=== PATIENT | male | born 1935 | race Caucasian/White ===

== ENCOUNTER 2023-11-25 15:35 | Inpatient (IN) | payer OTHER ==
[~2023-11-25] VITALS: Ht 172.7 cm; Wt 88.5 kg
[2023-11-25 15:38] VITALS: BP_SYST 132; PULSE 104; RESP 32; O2SAT 100
[2023-11-25] MEDS ORDERED: IPRA3AMP9 INH (16:27)
[2023-11-25] MEDS ORDERED: NEU300 PEG (16:27)
[2023-11-25] MEDS ORDERED: COLL100 PEG (16:27)
[2023-11-25] MEDS ORDERED: VALP250S3 PEG (16:27)
[2023-11-25] MEDS ORDERED: SENN8.6T19 PEG (16:27)
[2023-11-25] MEDS ORDERED: INSU100V9 SQ (16:27)
[2023-11-25] MEDS ORDERED: HYDR-2923 PEG (16:27)
[2023-11-25] MEDS ORDERED: POTA8TAB66 PEG (16:27)
[2023-11-25] MEDS ORDERED: LEVE1000 PO (16:27)
[2023-11-25] MEDS ORDERED: LORA2TAB95 PO (16:27)
[2023-11-25] MEDS ORDERED: FURO10SO PEG (16:27)
[2023-11-25] MEDS ORDERED: CHLO473M5 PO (16:27)
[2023-11-25] MEDS ORDERED: TYLL650 PEG (16:27)
[2023-11-25] MEDS ORDERED: HYT1 PEG (16:27)
[2023-11-25] MEDS ORDERED: PIPE3.379 IV (16:27)
[2023-11-25] MEDS ORDERED: MULT-1193 PEG (16:27)
[2023-11-25] MEDS ORDERED: [UNRECOGNIZED DRUG - CODE] PEG (16:27)
[2023-11-25] MEDS ORDERED: CLON0.5T4 PEG (16:27)
[2023-11-25] MEDS ORDERED: LOVI40 SQ (16:27)
[2023-11-25] MEDS ORDERED: METO25TA6 PEG (16:27)
[2023-11-25] MEDS ORDERED: GLUC1VIA14 (16:27)
[2023-11-25] MEDS ORDERED: FAMO40SU5 PEG (16:27)
[2023-11-25] MEDS ORDERED: POLY15DR43 RIGHT EYE (16:27)
[2023-11-25] MEDS ORDERED: ASCO500T20 PEG (16:27)
[2023-11-25] MEDS ORDERED: ANT30 PO (16:27)
[2023-11-25] MEDS ORDERED: FLEETMO RC (16:27)
[2023-11-25] MEDS ORDERED: SSNOVOLOG SUBCUT (16:27)
[2023-11-25] MEDS ORDERED: ASPI-1393 PEG (16:27)
[2023-11-25] MEDS ORDERED: POLY17PO4 PEG (16:27)
[2023-11-25 16:35] LABS: HEMOGLOBIN 7.3 g/dL (14.0-18.0); MEAN CORPUSCULAR HEMOGLOBIN 31 pg (27-31); MEAN CORPUSCULAR HGB CONC 34 % (32-36); MEAN CORPUSCULAR VOLUME 91 fL (79.0-98.0); PLATELET COUNT (AUTO) 191 K/uL (130-430); RED BLOOD CELL COUNT(AUTO) 2.35 MIL/uL (4.2-6.2); RED CELL DISTRIBUTION WIDTH 14.8 % (9.0-15.0); WHITE BLOOD COUNT (AUTO) 11.5 K/uL (4.8-10.8)
[2023-11-25 16:56] LABS: HEMATOCRIT 21.3 % (36-54)
[2023-11-25 17:02] LABS: ALANINE AMINOTRANSFERASE 62 U/L (12-78); ALBUMIN 1.6 g/dL (3.4-4.8); AMYLASE 82 U/L (0-100); ANION GAP 4 (5-15); ASPARTATE AMINOTRANSFERASE 66 U/L (10-37); BILIRUBIN,DIRECT 0.2 mg/dL (0.0-0.3); CALCIUM 8.9 mg/dL (8.4-11.0); CARBON DIOXIDE 37 mmol/L (23-29); CHLORIDE 101 mmol/L (98-107); CREATININE 1.69 mg/dL (0.55-1.30); GLUCOSE 125 mg/dL (74-106); LIPASE 83 U/L (16-77); POTASSIUM 3.9 mmol/L (3.5-5.1); SODIUM SERUM 142 mmol/L (136-145); TOTAL BILIRUBIN 0.4 mg/dL (0.0-1.0); TOTAL PROTEIN, SERUM 6.7 g/dL (6.4-8.3); UREA NITROGEN, BLOOD 89 mg/dL (8-21)
[2023-11-25 17:04] LABS: INR 1.2 (0.80-1.20); PROTHROMBIN TIME 12.1 SECS (9.5-12.5)
[2023-11-25 17:24] LABS: BAND % (MANUAL) 8 % (0-6); BASOPHILS % (MANUAL) 0 % (0-2); EOSINOPHILS % (MANUAL) 0 % (0-7); LYMPHOCYTES % (MANUAL) 17 % (20-46); MONOCYTES % (MANUAL) 7 % (0-11); PLATELET ESTIMATE ADEQUATE (ADEQUATE); POLYCHROMASIA 1+
[2023-11-25] MEDS ORDERED: NOREPINEPHRINE 4 MG/4 ML VIAL IV ONE ×3 (17:40→19:27)
[2023-11-25] MEDS ORDERED: PHENYLEPHRINE HCL 10 MG/ML VIAL (NEOSYNEPHRINE) ONE ×2 (18:17→18:19)
[2023-11-25] MEDS: PHENYLEPHRINE HCL 50 MG in NS 245 ML IV ONE (18:28)
[2023-11-25] MEDS: NOREPINEPHRINE BITARTRATE 4 MG in NS 246 ML IV ONE (18:30)
[2023-11-25] MEDS: NACL 0.9% 1,000 ML IV ONE (18:30)
[2023-11-25] MEDS: D5/0.45 NS 1,000 ML IV SCH (18:30)
[2023-11-25 19:23] VITALS: BP_SYST 158; PULSE 130
[2023-11-25] MEDS ORDERED: PIPERACILLIN/TAZOBACTAM 3.375 GM/VIAL (ZOSYN) IV ONE (19:31)
[2023-11-25] MEDS ORDERED: VANCOMYCIN HCL 1000 MG/VIAL IV ONE (19:34)
[2023-11-25] MEDS: PIPERACILLIN/TAZO 3.375 GM in NS 50 ML IV ONE (19:46)
[2023-11-25] MEDS: PANTOPRAZOLE SODIUM 40 MG/VIAL (PROTONIX) IVP ONE (19:49)
[2023-11-25] MEDS: VANCOMYCIN HCL 1,250 MG in NS 250 ML IV ONE (19:49)
[2023-11-25] MEDS: NOREPINEPHRINE BITARTRATE 4 MG in NS 246 ML IV SCH (19:59)
[2023-11-25] MEDS ORDERED: VASOPRESSIN 20 UNITS in NS 99 ML IV SCH (20:00)
[2023-11-25 21:10] VITALS: PULSE 112
[2023-11-25 23:23] VITALS: PULSE 120
[2023-11-26] VITALS (42 sets, daily range): BP systolic 89–193; PULSE 65–112; RESP 16–31; TEMP 97–99.9; O2SAT 92–100
[2023-11-26 05:00] LABS: BASOPHILS # (AUTO) 0.1 K/uL (0.0-0.2); BASOPHILS % (AUTO) 0.3 % (0.0-2.0); EOSINOPHILS % (AUTO) 0.1 % (0.0-4.0); LYMPHOCYTES # (AUTO) 1.7 K/uL (1.0-5.5); LYMPHOCYTES % (AUTO) 8.3 % (20.5-51.5); MEAN CORPUSCULAR HEMOGLOBIN 29 pg (27-31); MEAN CORPUSCULAR HGB CONC 32 % (32-36); MEAN CORPUSCULAR VOLUME 90 fL (79.0-98.0); MONOCYTES # (AUTO) 1.5 K/uL (0.0-1.0); MONOCYTES % (AUTO) 7.5 % (1.7-9.3); NEUTROPHILS # (AUTO) 17.1 K/uL (1.8-7.7); NEUTROPHILS % (AUTO) 83.8 % (40.0-70.0); PLATELET COUNT (AUTO) 236 K/uL (130-430); RED BLOOD CELL COUNT(AUTO) 2.39 MIL/uL (4.2-6.2); RED CELL DISTRIBUTION WIDTH 14.7 % (9.0-15.0); WHITE BLOOD COUNT (AUTO) 20.4 K/uL (4.8-10.8)
[2023-11-26 05:10] LABS: HEMATOCRIT 21.6 % (36-54)
[2023-11-26] MEDS: PHENYLEPHRINE HCL 50 MG in NS 245 ML IV PRN (07:43)
[2023-11-26 08:46] LABS: HEMATOCRIT 23.2 % (36-54); HEMOGLOBIN 7.7 g/dL (14.0-18.0); MEAN CORPUSCULAR HEMOGLOBIN 29 pg (27-31); MEAN CORPUSCULAR HGB CONC 33 % (32-36); MEAN CORPUSCULAR VOLUME 87 fL (79.0-98.0); PLATELET COUNT (AUTO) 243 K/uL (130-430); RED BLOOD CELL COUNT(AUTO) 2.66 MIL/uL (4.2-6.2); WHITE BLOOD COUNT (AUTO) 17.6 K/uL (4.8-10.8)
[2023-11-26 09:09] LABS: ANION GAP 9 (5-15); CALCIUM 7.5 mg/dL (8.4-11.0); CARBON DIOXIDE 33 mmol/L (23-29); CHLORIDE 103 mmol/L (98-107); GLUCOSE 164 mg/dL (74-106); PHOSPHORUS 4.4 mg/dL (2.7-4.5); SODIUM SERUM 145 mmol/L (136-145); UREA NITROGEN, BLOOD 85 mg/dL (8-21)
[2023-11-26 09:32] LABS: ABG O2 SAT% ESTIMATE 99.6 % (94.0-100.0); BLOOD GAS BASE EXCESS 7.1 mmol/L (-3.0-3.0); BLOOD GAS HCO3 30.1 mmol/L (21.0-27.0); BLOOD GAS PCO2 37.2 mmHg (32.0-45.0); BLOOD GAS PO2 225.4 mmHg (75.0-100.0)
[2023-11-26 09:45] LABS: ALLEN'S TEST POSITIVE (P); BLOOD GAS PH 7.526 (7.350-7.450)
[2023-11-26 09:50] LABS: ATYPICAL LYMPHOCYTES % 1 % (0-0); BAND % (MANUAL) 4 % (0-6); BASOPHILS % (MANUAL) 0 % (0-2); EOSINOPHILS % (MANUAL) 0 % (0-7); LYMPHOCYTES % (MANUAL) 11 % (20-46); METAMYELOCYTES % 2 % (0-0); MONOCYTES % (MANUAL) 11 % (0-11); PLATELET ESTIMATE ADEQUATE (ADEQUATE)
[2023-11-26] MEDS: ALBUMIN HUMAN 25% 200 ML IV ONE (09:51)
[2023-11-26] MEDS: PANTOPRAZOLE SODIUM 40 MG/VIAL (PROTONIX) IVP ONE (09:52)
[2023-11-26] MEDS ORDERED: MORPHINE 4 MG INJ. 4 MG/ML VIAL IVP PRN (11:00)
[2023-11-26] MEDS ORDERED: MORPHINE 2 MG/ML INJ. SYRINGE IVP PRN (11:00)
[2023-11-26] MEDS ORDERED: NALOXONE HCL 0.4 MG/ML AMP (NARCAN) IVP PRN (11:00)
[2023-11-26] MEDS ORDERED: ONDANSETRON HCL 4 MG/2 ML VIAL IVP PRN (11:00)
[2023-11-26] MEDS: ALBUTEROL SULFATE 0.083% 2.5 MG/3 ML VIAL.NEB INH ONE (11:46)
[2023-11-26] MEDS: IPRATROPIUM BROM 0.5 MG/2.5 ML VIAL.NEB (ATROVENT) INH ONE (11:46)
[2023-11-26 12:35] LABS: INR 1.3 (0.80-1.20); PROTHROMBIN TIME 13.7 SECS (9.5-12.5)
[2023-11-26] MEDS: PIPERACILLIN/TAZO 3.375/DEX-IS 50 ML IV SCH (13:00)
[2023-11-26] MEDS: KCL 40 mEq in 100 mL (PREMIX) 100 ML IV ONE (13:48)
[2023-11-26] MEDS: IPRATROPIUM BROM 0.5 MG/2.5 ML VIAL.NEB (ATROVENT) INH SCH (15:09)
[2023-11-26] MEDS: ALBUTEROL SULFATE 0.083% 2.5 MG/3 ML VIAL.NEB INH SCH (15:09)
[2023-11-26] MEDS: LORazepam 2 MG/ML VIAL IVP PRN (15:33)
[2023-11-26] MEDS: D5NS 1,000 ML IV SCH (16:00)
[2023-11-26] MEDS: GOLYTELY / COLYTE SOLUTION 4 LITERS PO ONE (19:17)
[2023-11-26] MEDS ORDERED: ACETAMINOPHEN CHILDREN'S 160 MG/5 ML UDC ORAL.SUSP GT PRN (19:45)
[2023-11-26] MEDS: ACETAMINOPHEN 650 MG/20.3 ML UDC GT PRN (19:54)
[2023-11-26] MEDS: PANTOPRAZOLE SODIUM 40 MG/VIAL (PROTONIX) IVP SCH (20:38)
[2023-11-26 21:03] LABS: MEAN CORPUSCULAR HEMOGLOBIN 29 pg (27-31); MEAN CORPUSCULAR HGB CONC 34 % (32-36); MEAN CORPUSCULAR VOLUME 87 fL (79.0-98.0); PLATELET COUNT (AUTO) 223 K/uL (130-430); RED BLOOD CELL COUNT(AUTO) 2.16 MIL/uL (4.2-6.2); RED CELL DISTRIBUTION WIDTH 17.3 % (9.0-15.0)
[2023-11-26 21:08] LABS: HEMOGLOBIN 6.4 g/dL (14.0-18.0)
[2023-11-26 21:22] LABS: HEMATOCRIT 18.9 % (36-54)
[2023-11-26 22:21] LABS: BAND % (MANUAL) 8 % (0-6); BASOPHILS % (MANUAL) 0 % (0-2); EOSINOPHILS % (MANUAL) 0 % (0-7); LYMPHOCYTES % (MANUAL) 14 % (20-46); MONOCYTES % (MANUAL) 8 % (0-11)
[2023-11-26 22:22] LABS: PLATELET ESTIMATE ADEQUATE (ADEQUATE)
[2023-11-26 22:23] LABS: ANISOCYTOSIS 1+
[2023-11-27] VITALS (61 sets, daily range): BP systolic 88–165; PULSE 64–98; RESP 14–29; TEMP 97.1–98.9; O2SAT 92–100
[2023-11-27 06:00] LABS: BASOPHILS % (AUTO) 0.3 % (0.0-2.0); EOSINOPHILS % (AUTO) 0.2 % (0.0-4.0); HEMATOCRIT 24.9 % (36-54); HEMOGLOBIN 8.4 g/dL (14.0-18.0); LYMPHOCYTES # (AUTO) 1.3 K/uL (1.0-5.5); LYMPHOCYTES % (AUTO) 11.1 % (20.5-51.5); MEAN CORPUSCULAR HEMOGLOBIN 29 pg (27-31); MEAN CORPUSCULAR HGB CONC 34 % (32-36); MEAN CORPUSCULAR VOLUME 87 fL (79.0-98.0); MONOCYTES # (AUTO) 1.3 K/uL (0.0-1.0); MONOCYTES % (AUTO) 10.6 % (1.7-9.3); NEUTROPHILS # (AUTO) 9.4 K/uL (1.8-7.7); PLATELET COUNT (AUTO) 234 K/uL (130-430); RED BLOOD CELL COUNT(AUTO) 2.86 MIL/uL (4.2-6.2); RED CELL DISTRIBUTION WIDTH 16.8 % (9.0-15.0); WHITE BLOOD COUNT (AUTO) 12.1 K/uL (4.8-10.8)
[2023-11-27 06:28] LABS: ALBUMIN 2.2 g/dL (3.4-4.8); ANION GAP 11 (5-15); CARBON DIOXIDE 30 mmol/L (23-29); CHLORIDE 107 mmol/L (98-107); CREATININE 1.41 mg/dL (0.55-1.30); GLUCOSE 197 mg/dL (74-106); PHOSPHORUS 3.2 mg/dL (2.7-4.5); SODIUM SERUM 148 mmol/L (136-145); TOTAL BILIRUBIN 0.8 mg/dL (0.0-1.0); UREA NITROGEN, BLOOD 69 mg/dL (8-21); VANCOMYCIN,RANDOM 9.3 ug/mL (20.0-30.0)
[2023-11-27 07:20] LABS: NEUTROPHILS % (AUTO) 77.8 % (40.0-70.0)
[2023-11-27 08:23] LABS: POTASSIUM 2.8 mmol/L (3.5-5.1)
[2023-11-27 08:24] LABS: ALANINE AMINOTRANSFERASE 270 U/L (12-78); ASPARTATE AMINOTRANSFERASE 226 U/L (10-37)
[2023-11-27] MEDS: POTASSIUM CHLORIDE 40 MEQ in NS 250 ML IV ONE (13:01)
[2023-11-27 20:54] LABS: HEMOGLOBIN 8.2 g/dL (14.0-18.0)
[2023-11-28] VITALS: BP_SYST 105; PULSE 86; RESP 21; TEMP 98.6; O2SAT 95
[2023-11-28 01:00] VITALS: BP_SYST 127; PULSE 81; PULSE 85; RESP 16; O2SAT 94
[2023-11-28 02:00] VITALS: BP_SYST 115; PULSE 81; RESP 21; O2SAT 95
[2023-11-28 02:41] VITALS: BP_SYST 115; PULSE 81; RESP 21; TEMP 98.6; O2SAT 94
[2023-11-28 02:44] VITALS: BP_SYST 113; PULSE 81; RESP 21; TEMP 98.6; O2SAT 95
[2023-11-28 03:00] VITALS: BP_SYST 108; BP_SYST 99; PULSE 76; PULSE 88; RESP 26; O2SAT 94
[2023-11-28] MEDS ORDERED: BALSAM PERU/CASTOR OIL 56.7 GM OINT...G. TP SCH (09:00)
== END 2023-11-28 03:50 | disposition short-term general hospital (02) | DRG 871 ==
LOC: SED 15:35 → SIC 18:28
PROVIDERS: ADMIT Preventive Medicine Preventive Medicine/Occupational Environmental Medicine; ATTEND Preventive Medicine Preventive Medicine/Occupational Environmental Medicine
PROC: 5A1945Z Respiratory Ventilation, 24-96 Consecutive Hours (ICD-10-PCS; principal; 2023-11-25)
PROC: 30233N1 Transfusion of Nonautologous Red Blood Cells into Peripheral Vein, Percutaneous Approach (ICD-10-PCS; 2023-11-25)
PROC: 02HV33Z Insertion of Infusion Device into Superior Vena Cava, Percutaneous Approach (ICD-10-PCS; 2023-11-25)
PROC: B548ZZA Ultrasonography of Superior Vena Cava, Guidance (ICD-10-PCS; 2023-11-25)
PROC: 30233N1 Transfusion of Nonautologous Red Blood Cells into Peripheral Vein, Percutaneous Approach (ICD-10-PCS; 2023-11-25)
DX: A41.9 Sepsis, unspecified organism (principal); E43 Unspecified severe protein-calorie malnutrition; J18.9 Pneumonia, unspecified organism; J96.20 Acute and chronic respiratory failure, unspecified whether with hypoxia or hypercapnia; K92.2 Gastrointestinal hemorrhage, unspecified; Z99.11 Dependence on respirator [ventilator] status; G93.40 Encephalopathy, unspecified; J44.0 Chronic obstructive pulmonary disease with (acute) lower respiratory infection; E87.0 Hyperosmolality and hypernatremia; D64.9 Anemia, unspecified; E78.5 Hyperlipidemia, unspecified; I10 Essential (primary) hypertension; G40.909 Epilepsy, unspecified, not intractable, without status epilepticus; K52.9 Noninfective gastroenteritis and colitis, unspecified; I95.9 Hypotension, unspecified; R13.10 Dysphagia, unspecified; I25.10 Atherosclerotic heart disease of native coronary artery without angina pectoris; N40.0 Benign prostatic hyperplasia without lower urinary tract symptoms; Z93.0 Tracheostomy status; Z87.820 Personal history of traumatic brain injury; E88.09 Other disorders of plasma-protein metabolism, not elsewhere classified; Z79.01 Long term (current) use of anticoagulants; Z86.74 Personal history of sudden cardiac arrest; Z87.891 Personal history of nicotine dependence; Z93.1 Gastrostomy status; Z68.29 Body mass index [BMI] 29.0-29.9, adult; E11.65 Type 2 diabetes mellitus with hyperglycemia; E86.0 Dehydration; E87.6 Hypokalemia; E83.51 Hypocalcemia
CPT/HCPCS: 36415; 36600; 71045; 80048; 80053; 80076; 80202; 82150; 82272; 82803; 82948; 83605; 83690; 83735; 84100; 85007; 85018; 85025; 85027; 85610; 85730; 86886; 86900; 86901; 86920; 87040; 87070; 87081; 87186; 87205; 94002; 94003; 94640; 94760; 99291; C9113; J2060; J2370; J2543; J3370; J3480; J7050; P9021